=== PATIENT | female | born 1945 | race Caucasian/White ===

== ENCOUNTER 2019-06-09 18:59 | Inpatient (IN) ==
[2019-06-09] MEDS ORDERED: SODIUM CHLORIDE 0.9% 1,000 ML IV STA (20:05)
[2019-06-09] MEDS ORDERED: IBUPROFEN 800 MG TABLET PO PRN (22:16)
[2019-06-10] MEDS: ENOXAPARIN 40 MG/0.4 ML SYRINGE SUBCUT SCH ×2 (01:55→23:34)
[2019-06-10] MEDS: PIPERACILLIN/TAZOBACTAM 3,375 MG in SODIUM CHLORIDE 0.9% 100 ML IV SCH ×3 (01:56→20:41)
[2019-06-10 06:40] LABS: Basophils % 0.4 % (0.0-0.8); Eosinophils # 0.1 10*3/uL (0.0-0.87); Eosinophils % 0.8 % (0.00-10.9); Hematocrit 23.8 VOL% (35.7-47.0); Hemoglobin 7.1 GM/DL (12.0-16.0); Immature Granulocytes % 0.6 %; Immature Granulocytes Absolute 0.05 #; Lymphocytes # 0.7 10*3/uL (1.4-4.0); Lymphocytes % 8.5 % (21.3-54.2); Mean Corpuscular HGB Conc 29.8 GM/DL (32-36); Mean Corpuscular Volume 78.8 FL (87-102); Mean Platelet Volume 12.5 FL (9.6-12.0); Monocytes % 7.4 % (1.7-12.7); Neutrophils % 82.3 % (38.7-73.9); Platelet Count 163 T/CUMM (130-400); Red Blood Count 3.02 MC/CUMM (3.8-5.5); Red Cell Distribution Width 15.2 % (9.3-17.3); White Blood Count 7.9 T/CUMM (4-12)
[2019-06-10 07:02] LABS: Albumin 2.6 G/DL (3.4-5.0); Bilirubin,Total 1.4 MG/DL (0.2-1.0); Calcium 8.6 MG/DL (8.5-10.1); Osmolality,Calculated 268.2 MOS/KG (273-304); Total Protein 6.4 G/DL (6.4-8.3)
[2019-06-10] MEDS: SODIUM CHLORIDE 0.9% 1,000 ML IV SCH ×2 (09:31→20:42)
[2019-06-10] MEDS: ACETAMINOPHEN 325 MG TABLET PO PRN (09:39)
[2019-06-10] MEDS: PANTOPRAZOLE 40 MG TABLET PO SCH (09:40)
[2019-06-10] MEDS: CETIRIZINE 10 MG TABLET PO SCH (09:40)
[2019-06-10] MEDS: ESCITALOPRAM 10 MG TABLET PO SCH (09:40)
[2019-06-10] MEDS: hydroCHLOROthiazide 12.5 MG CAPSULE PO SCH (09:41)
[2019-06-10] MEDS ORDERED: SODIUM CHLORIDE 0.9% 1,000 ML IV PRN (09:47)
[2019-06-10 20:46] LABS: Hematocrit 30.4 VOL% (35.7-47.0); Hemoglobin 9.2 GM/DL (12.0-16.0)
[2019-06-11] MEDS: PIPERACILLIN/TAZOBACTAM 3,375 MG in SODIUM CHLORIDE 0.9% 100 ML IV SCH ×4 (02:33→19:51)
[2019-06-11] MEDS: SODIUM CHLORIDE 0.9% 1,000 ML IV SCH ×2 (02:34→15:31)
[2019-06-11 06:28] LABS: Basophils % 0.4 % (0.0-0.8); Eosinophils # 0.1 10*3/uL (0.0-0.87); Eosinophils % 1.8 % (0.00-10.9); Hematocrit 27.3 VOL% (35.7-47.0); Hemoglobin 8.4 GM/DL (12.0-16.0); Immature Granulocytes % 0.4 %; Immature Granulocytes Absolute 0.03 #; Lymphocytes # 0.7 10*3/uL (1.4-4.0); Lymphocytes % 9.8 % (21.3-54.2); Mean Corpuscular HGB Conc 30.8 GM/DL (32-36); Mean Corpuscular Volume 77.6 FL (87-102); Mean Platelet Volume 12.7 FL (9.6-12.0); Monocytes % 8.7 % (1.7-12.7); Neutrophils % 78.9 % (38.7-73.9); Platelet Count 177 T/CUMM (130-400); Red Blood Count 3.52 MC/CUMM (3.8-5.5); Red Cell Distribution Width 16.2 % (9.3-17.3); White Blood Count 6.8 T/CUMM (4-12)
[2019-06-11] MEDS ORDERED: BUPIVACAINE MPF 0.25% 30 ML VIAL ONE (07:13)
[2019-06-11] MEDS ORDERED: LIDOCAINE 1%/EPI INJ 20 ML VIAL ONE (07:13)
[2019-06-11] MEDS: CETIRIZINE 10 MG TABLET PO SCH (09:06)
[2019-06-11] MEDS: hydroCHLOROthiazide 12.5 MG CAPSULE PO SCH (09:06)
[2019-06-11] MEDS: PANTOPRAZOLE 40 MG TABLET PO SCH (09:06)
[2019-06-11] MEDS: ESCITALOPRAM 10 MG TABLET PO SCH (09:06)
[2019-06-11] MEDS ORDERED: DEXAMETHASONE 4 MG/1 ML VIAL ONE (11:58)
[2019-06-11] MEDS ORDERED: SEVOFLURANE 1 UNIT/15 MINUTE INH ONE (11:58)
[2019-06-11] MEDS ORDERED: ONDANSETRON 4 MG/2 ML VIAL ONE (11:58)
[2019-06-11] MEDS ORDERED: KETOROLAC 30 MG/1 ML VIAL ONE (11:58)
[2019-06-11] MEDS ORDERED: MIDAZOLAM 2 MG/2 ML VIAL ONE (11:58)
[2019-06-11] MEDS ORDERED: ePHEDrine 50 MG/ML AMP ONE (11:58)
[2019-06-11] MEDS ORDERED: LIDOCAINE 2% 5 ML VIAL ONE (11:58)
[2019-06-11] MEDS ORDERED: propofoL 200 MG/20 ML VIAL IV ONE (11:58)
[2019-06-11] MEDS ORDERED: fentaNYL 100 MCG/2 ML VIAL ONE (11:58)
[2019-06-11] MEDS ORDERED: ACETAMINOPHEN 1,000 MG/100 ML VIAL IV ONE (11:59)
[2019-06-11] MEDS ORDERED: LACTATED RINGERS 1,000 ML IV ONE (11:59)
[2019-06-11] MEDS ORDERED: NEOSTIGMINE 10 MG/10 ML VIAL ONE (11:59)
[2019-06-11] MEDS ORDERED: GLYCOPYRROLATE 0.4 MG/2 ML VIAL ONE (11:59)
[2019-06-11] MEDS ORDERED: ROCURONIUM 100 MG/10 ML VIAL IV ONE (11:59)
[2019-06-11] MEDS ORDERED: SUCCINYLCHOLINE 200 MG/10 ML VIAL ONE (11:59)
[2019-06-11] MEDS ORDERED: ONDANSETRON 4 MG/2 ML VIAL IV PRN (12:04)
[2019-06-11] MEDS ORDERED: HYDROmorphone 2 MG/1 ML VIAL IV PRN (12:04)
[2019-06-11 12:13] LABS: Apearance,Urine CLEAR (Clear); Bacteria,Urine Occasional /HPF (Few); Bilirubin,Urine Negative (Negative); Blood, Urine Negative (Negative); Glucose,Urine (UA) Negative (Negative); Ketones,Urine Negative (Negative); Mucus,Urine Occasional /LPF (Occasional); Nitrite,Urine Negative (Negative); Protein,Urine Negative; RBC,Urine 2 /HPF (0-4); Squamous Epithelial Cell,Urine Occasional /HPF (0-10); Urine Color Amber (Yellow); WBC,Urine 7 /HPF (0-6)
[2019-06-11 14:10] LABS: Hematocrit 29.4 VOL% (35.7-47.0)
[2019-06-11] MEDS: DEXTROSE 5% NACL 0.9% 1,000 ML IV SCH ×2 (14:12→19:53)
[2019-06-11] MEDS: MORPHINE 4 MG/1 ML VIAL IV PRN ×2 (14:13→19:51)
[2019-06-11 20:15] LABS: Hematocrit 28.5 VOL% (35.7-47.0); Hemoglobin 8.6 GM/DL (12.0-16.0)
[2019-06-11] MEDS: ENOXAPARIN 40 MG/0.4 ML SYRINGE SUBCUT SCH (22:32)
[2019-06-12] MEDS: PIPERACILLIN/TAZOBACTAM 3,375 MG in SODIUM CHLORIDE 0.9% 100 ML IV SCH ×3 (03:42→20:08)
[2019-06-12] MEDS: DEXTROSE 5% NACL 0.9% 1,000 ML IV SCH ×2 (03:43→11:17)
[2019-06-12] MEDS: SODIUM CHLORIDE 0.9% 1,000 ML IV SCH (03:44)
[2019-06-12 07:20] LABS: Basophils % 0.1 % (0.0-0.8); Eosinophils % 0.1 % (0.00-10.9); Hematocrit 26.4 VOL% (35.7-47.0); Immature Granulocytes Absolute 0.08 #; Lymphocytes # 0.7 10*3/uL (1.4-4.0); Lymphocytes % 8.2 % (21.3-54.2); Mean Corpuscular HGB Conc 30.3 GM/DL (32-36); Mean Corpuscular Volume 78.8 FL (87-102); Mean Platelet Volume 12.8 FL (9.6-12.0); Monocytes % 7.7 % (1.7-12.7); Neutrophils % 82.9 % (38.7-73.9); Platelet Count 173 T/CUMM (130-400); Red Blood Count 3.35 MC/CUMM (3.8-5.5); Red Cell Distribution Width 16.3 % (9.3-17.3)
[2019-06-12 07:35] LABS: Calcium 8.8 MG/DL (8.5-10.1); Osmolality,Calculated 278.5 MOS/KG (273-304)
[2019-06-12] MEDS: ONDANSETRON 4 MG/2 ML VIAL IV PRN (09:06)
[2019-06-12] MEDS: MORPHINE 4 MG/1 ML VIAL IV PRN (09:06)
[2019-06-12] MEDS: CETIRIZINE 10 MG TABLET PO SCH (09:07)
[2019-06-12] MEDS: PANTOPRAZOLE 40 MG TABLET PO SCH (09:07)
[2019-06-12] MEDS: ESCITALOPRAM 10 MG TABLET PO SCH (09:07)
[2019-06-12] MEDS: hydroCHLOROthiazide 12.5 MG CAPSULE PO SCH (09:07)
[2019-06-12] MEDS: ENOXAPARIN 40 MG/0.4 ML SYRINGE SUBCUT SCH (22:33)
[2019-06-13] MEDS: MORPHINE 4 MG/1 ML VIAL IV PRN ×4 (00:12→21:19)
[2019-06-13] MEDS: PIPERACILLIN/TAZOBACTAM 3,375 MG in SODIUM CHLORIDE 0.9% 100 ML IV SCH ×3 (03:57→21:18)
[2019-06-13] MEDS: DEXTROSE 5% NACL 0.9% 1,000 ML IV SCH (04:00)
[2019-06-13 05:10] LABS: Basophils % 0.3 % (0.0-0.8); Eosinophils # 0.1 10*3/uL (0.0-0.87); Eosinophils % 0.6 % (0.00-10.9); Hematocrit 27.5 VOL% (35.7-47.0); Hemoglobin 8.3 GM/DL (12.0-16.0); Immature Granulocytes % 0.7 %; Immature Granulocytes Absolute 0.06 #; Lymphocytes # 0.5 10*3/uL (1.4-4.0); Lymphocytes % 6.2 % (21.3-54.2); Mean Corpuscular HGB Conc 30.2 GM/DL (32-36); Mean Corpuscular Volume 78.8 FL (87-102); Mean Platelet Volume 12.5 FL (9.6-12.0); Monocytes % 6.2 % (1.7-12.7); Platelet Count 190 T/CUMM (130-400); Red Blood Count 3.49 MC/CUMM (3.8-5.5); Red Cell Distribution Width 16.7 % (9.3-17.3); White Blood Count 8.7 T/CUMM (4-12)
[2019-06-13 05:42] LABS: Calcium 8.9 MG/DL (8.5-10.1); Osmolality,Calculated 275.7 MOS/KG (273-304)
[2019-06-13] MEDS: ONDANSETRON 4 MG/2 ML VIAL IV PRN ×2 (06:18→12:41)
[2019-06-13] MEDS ORDERED: FUROSEMIDE 40 MG/4 ML VIAL IV ONE (08:30)
[2019-06-13] MEDS: POTASSIUM CHLORIDE RIDER 100 ML IV SCH ×4 (09:34→16:27)
[2019-06-13] MEDS: hydroCHLOROthiazide 12.5 MG CAPSULE PO SCH (09:34)
[2019-06-13] MEDS: PANTOPRAZOLE 40 MG TABLET PO SCH (09:34)
[2019-06-13] MEDS: ESCITALOPRAM 10 MG TABLET PO SCH (09:34)
[2019-06-13] MEDS: CETIRIZINE 10 MG TABLET PO SCH (09:35)
[2019-06-13] MEDS ORDERED: LIDOCAINE 2% VISCOUS 100 ML BOTTLE ONE (13:03)
[2019-06-13] MEDS ORDERED: POTASSIUM CHLORIDE RIDER 100 ML IV SCH (16:30)
[2019-06-13] MEDS: LACTATED RINGERS 1,000 ML IV SCH ×2 (16:30→22:44)
[2019-06-13] MEDS: ENOXAPARIN 40 MG/0.4 ML SYRINGE SUBCUT SCH (18:32)
[2019-06-13] MEDS: POTASSIUM CHLORIDE INJ 20 MEQ in LACTATED RINGERS 1,000 ML IV SCH (22:44)
[2019-06-14] MEDS: PIPERACILLIN/TAZOBACTAM 3,375 MG in SODIUM CHLORIDE 0.9% 100 ML IV SCH ×3 (03:01→19:17)
[2019-06-14] MEDS: MORPHINE 4 MG/1 ML VIAL IV PRN ×3 (04:51→18:08)
[2019-06-14] MEDS: CETIRIZINE 10 MG TABLET PO SCH (09:01)
[2019-06-14] MEDS: hydroCHLOROthiazide 12.5 MG CAPSULE PO SCH (09:01)
[2019-06-14] MEDS: PANTOPRAZOLE 40 MG TABLET PO SCH (09:01)
[2019-06-14] MEDS: ESCITALOPRAM 10 MG TABLET PO SCH (09:01)
[2019-06-14 10:28] LABS: Calcium 9.2 MG/DL (8.5-10.1); Osmolality,Calculated 277.5 MOS/KG (273-304)
[2019-06-14] MEDS: POTASSIUM CHLORIDE INJ 20 MEQ in LACTATED RINGERS 1,000 ML IV SCH (12:18)
[2019-06-14] MEDS: LACTATED RINGERS 1,000 ML IV SCH (12:26)
[2019-06-14] MEDS: ENOXAPARIN 40 MG/0.4 ML SYRINGE SUBCUT SCH (17:24)
[2019-06-15] MEDS: LACTATED RINGERS 1,000 ML IV SCH ×2 (01:24→18:29)
[2019-06-15] MEDS: POTASSIUM CHLORIDE INJ 20 MEQ in LACTATED RINGERS 1,000 ML IV SCH ×2 (02:40→18:30)
[2019-06-15] MEDS: PIPERACILLIN/TAZOBACTAM 3,375 MG in SODIUM CHLORIDE 0.9% 100 ML IV SCH (03:15)
[2019-06-15] MEDS: MORPHINE 4 MG/1 ML VIAL IV PRN ×2 (05:12→22:18)
[2019-06-15 07:34] LABS: Basophils # 0.1 10*3/uL (0.0-0.2); Basophils % 0.8 % (0.0-0.8); Eosinophils # 0.1 10*3/uL (0.0-0.87); Eosinophils % 2.2 % (0.00-10.9); Hematocrit 29.8 VOL% (35.7-47.0); Immature Granulocytes % 1.7 %; Immature Granulocytes Absolute 0.11 #; Lymphocytes # 0.7 10*3/uL (1.4-4.0); Mean Corpuscular HGB Conc 30.2 GM/DL (32-36); Mean Platelet Volume 11.5 FL (9.6-12.0); Monocytes % 7.8 % (1.7-12.7); Neutrophils % 77.5 % (38.7-73.9); Platelet Count 272 T/CUMM (130-400); Red Blood Count 3.82 MC/CUMM (3.8-5.5); White Blood Count 6.5 T/CUMM (4-12)
[2019-06-15 08:10] LABS: Calcium 9.3 MG/DL (8.5-10.1); Osmolality,Calculated 282.1 MOS/KG (273-304)
[2019-06-15] MEDS: ESCITALOPRAM 10 MG TABLET PO SCH (08:56)
[2019-06-15] MEDS: CETIRIZINE 10 MG TABLET PO SCH (08:56)
[2019-06-15] MEDS: PANTOPRAZOLE 40 MG TABLET PO SCH (08:56)
[2019-06-15] MEDS: hydroCHLOROthiazide 12.5 MG CAPSULE PO SCH (08:56)
[2019-06-15] MEDS: amLODIPine 5 MG TABLET PO SCH (15:38)
[2019-06-15] MEDS: ENOXAPARIN 40 MG/0.4 ML SYRINGE SUBCUT SCH (18:06)
[2019-06-16] MEDS: LACTATED RINGERS 1,000 ML IV SCH (06:29)
[2019-06-16] MEDS: POTASSIUM CHLORIDE INJ 20 MEQ in LACTATED RINGERS 1,000 ML IV SCH ×2 (08:48→23:29)
[2019-06-16] MEDS: MORPHINE 4 MG/1 ML VIAL IV PRN (08:49)
[2019-06-16] MEDS: CETIRIZINE 10 MG TABLET PO SCH (09:57)
[2019-06-16] MEDS: PANTOPRAZOLE 40 MG TABLET PO SCH (09:57)
[2019-06-16] MEDS: hydroCHLOROthiazide 12.5 MG CAPSULE PO SCH (09:58)
[2019-06-16] MEDS: amLODIPine 5 MG TABLET PO SCH (09:58)
[2019-06-16] MEDS: NYSTATIN 500,000 UNIT/5 ML UDCUP SWISH/SWAL SCH ×4 (09:58→20:41)
[2019-06-16] MEDS: ESCITALOPRAM 10 MG TABLET PO SCH (09:58)
[2019-06-16] MEDS: ENOXAPARIN 40 MG/0.4 ML SYRINGE SUBCUT SCH (17:41)
[2019-06-16] MEDS: ACETAMINOPHEN 325 MG TABLET PO PRN (20:40)
[2019-06-17] MEDS: LACTATED RINGERS 1,000 ML IV SCH (02:54)
[2019-06-17 07:56] VITALS: BP 148/80
[2019-06-17] MEDS: NYSTATIN 500,000 UNIT/5 ML UDCUP SWISH/SWAL SCH (09:07)
[2019-06-17] MEDS: PANTOPRAZOLE 40 MG TABLET PO SCH (09:07)
[2019-06-17] MEDS: ESCITALOPRAM 10 MG TABLET PO SCH (09:07)
[2019-06-17] MEDS: amLODIPine 5 MG TABLET PO SCH (09:07)
[2019-06-17] MEDS: hydroCHLOROthiazide 12.5 MG CAPSULE PO SCH (09:07)
[2019-06-17] MEDS: CETIRIZINE 10 MG TABLET PO SCH (09:07)
== END 2019-06-17 12:09 | disposition home or self-care (01) | DRG 329 ==
LOC: N.ED 18:59 → N.EDINP 21:54 → SUATTDRO 21:54 → N.EDINP 23:19 → N.5E 23:55
PROVIDERS: ADMIT Family Medicine; ATTEND Internal Medicine
PROC: IRGITIN (2019-06-13 13:00)